=== PATIENT | male | born 1990 | race Caucasian/White ===

== ENCOUNTER 2017-07-05 02:32 | Emergency (ER) | payer MEDICAID ==
[~2017-07-05] VITALS: Ht 170.2 cm; Wt 60.1 kg
[2017-07-05 02:33] VITALS: BP 146/89
[2017-07-05] MEDS ORDERED: HYDROcodone/APAP 5/325 TABLET PO ONE (03:00)
[2017-07-05] MEDS ORDERED: HYDROcodone/APAP 5/325 TABLET ONE (03:38)
== END 2017-07-05 05:08 | disposition home or self-care (01) ==
LOC: ED 04:45
DX: S39.012A Strain of muscle, fascia and tendon of lower back, initial encounter (principal); G89.29 Other chronic pain; X50.0XXA Overexertion from strenuous movement or load, initial encounter; X50.9XXA Other and unspecified overexertion or strenuous movements or postures, initial encounter; Y93.H3 Activity, building and construction; Y92.89 Other specified places as the place of occurrence of the external cause; Y99.8 Other external cause status
CPT/HCPCS: 99283

== ENCOUNTER 2017-07-09 19:01 | Emergency (ER) | payer MEDICAID ==
[~2017-07-09] VITALS: Ht 170.2 cm; Wt 62.8 kg
[2017-07-09 19:03] VITALS: BP 150/97
[2017-07-09] MEDS ORDERED: IBUPROFEN 200 MG TABLET ONE (20:51)
[2017-07-09] MEDS ORDERED: IBUPROFEN 200 MG TABLET PO ONE (21:00)
== END 2017-07-09 21:12 | disposition home or self-care (01) ==
LOC: ED 20:55
DX: M79.662 Pain in left lower leg (principal)
CPT/HCPCS: 29505; 99284

== ENCOUNTER 2017-09-03 13:00 | Emergency (ER) | payer MEDICAID ==
[~2017-09-03] VITALS: Ht 170.2 cm; Wt 63.0 kg
[2017-09-03 13:11] VITALS: BP 132/78
== END 2017-09-03 15:50 | disposition home or self-care (01) ==
LOC: ED 15:45
DX: K08.89 Other specified disorders of teeth and supporting structures (principal); G89.29 Other chronic pain
CPT/HCPCS: 99283